=== PATIENT | female | born 1970 | race Caucasian/White ===

== ENCOUNTER 2024-11-13 14:05 | Emergency (ER) | payer MEDICARE, OTHER, SELFPAY ==
[2024-11-13] VITALS (8 sets, daily range): BP systolic 97–119; BP diastolic 42–76; BMI 35.4
[2024-11-13] MEDS: NSS 1000 IV (14:30)
[2024-11-13 14:32] LABS: % Basophils 0.8 % (0-2); % Eosinophils 10.3 % (0-6); % Lymphocytes 39.1 % (20.5-51.1); % Monocytes 5.3 % (1.7-9.3); % Neutrophils 44.5 % (42.2-75.2); Absolute Eosinophils 0.5 10^3/uL (0-0.7); Absolute Lymphocytes 1.9 10^3/uL (1.2-3.4); Absolute Monocytes 0.3 10^3/uL (0.1-0.6); Absolute Neutrophils 2.2 10^3/uL (1.4-6.5); Hematocrit 40.8 % (37.0-47.0); Hemoglobin 13.7 g/dL (12.0-16.0); Mean Corp Hgb Conc. 33.6 g/dL (33.0-37.0); Mean Corpuscular Hgb 31.9 pg (27.0-31.0); Mean Corpuscular Volume 95.1 fL (81.0-99.0); Mean Platelet Volume 10.2 fL (7.4-10.4); Nucleated Red Blood Cells % 0 %; Platelet Count 220 10^3/uL (130-400); Red Blood Cell Count 4.29 10^6/uL (4.20-5.40); White Blood Cell Count 4.9 10^3/uL (4.8-10.8)
[2024-11-13] MEDS: BENADRYL 25 MG IV (14:33)
[2024-11-13] MEDS: DILAUDID 1 MG IV ×2 (14:33→18:13)
[2024-11-13 14:42] LABS: INR 1.26; PT 16.3 Sec (11.4-14.6)
[2024-11-13 14:43] LABS: APTT 27.7 Sec (23.4-35.0)
[2024-11-13 14:46] LABS: ALT (SGPT) 13 U/L (0-35); AST (SGOT) 24 U/L (14-36); Albumin 4.7 g/dl (3.5-5.0); Alkaline Phosphatase 92 U/L (38-126); Blood Urea Nitrogen 18 mg/dl (7-17); Calcium 9.9 mg/dl (8.4-10.2); Carbon Dioxide 21 mmol/L (22-30); Chloride 112 mmol/L (98-107); Estimated Creatinine Clearance 81 ml/min; Glucose 93 mg/dl (70-99); Potassium 4.2 mmol/L (3.5-5.1); Sodium 145 mmol/L (135-145); Total Bilirubin 0.7 mg/dl (0.2-1.3); Total Protein 7.2 g/dl (6.3-8.2); eGFR 59.34
--- NOTE | 2024-11-13 14:46 | ED.GENMED ---
History of Present Illness
General
Chief Complaint: Headache
Time Seen by Provider: 11/13/24 14:17
History of Present Illness
History of Present Illness:
54-year-old female with history of migraines and DVT/PE on Xarelto presenting to the emergency department for migraine. Patient reports for the past 4 days she has been having a severe migraine at the left side of her head. She reports that she
keeps having a 'clicking' sensation in the back of her head, which then leads to weakness and tingling to the left side of her body. She called her neurologist to make an appointment. She went to the neurologist today and at the office had one of
the episodes, so the ambulance was called. Notes that she has been taking Topamax without relief of her migraines. Reports that the last time she had come to the hospital for migraine was about a year ago. Denies inciting injury or trauma.
Denies visual changes. Denies fever. Denies additional acute medical complaints
Past History
Past History
ED Past Medical History: Asthma, GERD, HTN, Other (Asthma, vocal cord dysfunction, bariatric surgery, pacemaker, removal of pacemaker, PE), Other (Prior history of DVT with IVC filter) and Other (Apparent deficiency anemia-chronic)
ED Past Surgical History: Cardiac (Pacemaker insertion and subsequent removal due to infection), Cholecystectomy and Other (Patient apparently had a pacemaker insertion in the past for perceived sick sinus syndrome which apparently was 2 to
bradycardia secondary to pulmonary embolus. The pacemaker was subsequently removed after a MRSA infection.)
Social History
Tobacco: Non-smoker
Alcohol: None
Living: with family
Family History
Family History: Diabetes and CAD
Phy Exam
Physical Exam
Physical Exam:
General: Well-appearing, no clinical signs of dehydration, nontoxic and in no acute distress
HEENT: protecting airway
Neck: appears supple
CV: Normal heart rate, regular rhythm
Resp: No accessory muscle use, no increased work of breathing, lungs clear to auscultation bilaterally
Abd: Soft and non-distended, no tenderness to palpation, normal bowel sounds
Extremities: No deformities, no swelling, no erythema, pulses and sensation intact
Neuro: alert, slight weakness to the left upper and lower extremity comparison to the right, however globally intact, no drift
: deferred
Rectal: deferred
Psych: Normal affect
Skin: Intact
Scores
NIH Stroke Score
Level of Consciousness: 0 - Alert
LOC Questions: 0-Answers both correctly
LOC Commands: 0-Performs both correctly
Best Horizontal Gaze: 0-Normal
Visual Henning: 0=Normal, no visual loss
Facial Palsy: 0=Normal, symmetrical
Motor - Right Arm: 0=No drift 10 seconds
Motor - Left Arm: 0=No drift 10 seconds
Motor - Right Le-No drift 5 seconds
Motor - Left Le-No drift 5 seconds
Limb Ataxia: 0-Absent
Sensation: 0-Normal
Best Language: 0-No aphasia
Dysarthria: 0-Normal
Extinction and Inattention: 0-No abnormality
Total Score:: 0
Course
Orders/Labs/Results
Orders:
Orders
11/13/24
Electrocardiogram (*1) Stat
Comment: DONE
11/13/24 14:17
CT Head & Neck Angio W/wo IV Urgent
Comment:
Reason For Exam: migraine with L-sided weakness
11/13/24 14:18
0.9% Sodium Chloride 1000 ml [Nss] 1,000 ml IV BOLUS
Diphenhydramine [Benadryl] 25 mg IV NOW STA
HYDROmorphone [Dilaudid] 1 mg IV NOW STA
11/13/24 14:22
CMP [Comprehensive Metabolic Panel] Urgent
Complete Blood Count/With Diff Urgent
PT/INR [Prothrombin Time] Urgent
PTT Urgent
11/13/24 15:09
Ondansetron Injectable [Zofran] 4 mg IV NOW STA
11/13/24 17:02
HYDROmorphone [Dilaudid] 1 mg IV NOW STA
Abnormal Lab Results
11/13/24
14:22
MCH 31.9 H pg
(27.0-31.0)
Eosinophils % 10.3 H %
(0-6)
PT 16.3 H Sec
(11.4-14.6)
Chloride 112 H mmol/L
(98-107)
Carbon Dioxide 21 L mmol/L
(22-30)
BUN 18 H mg/dl
(7-17)
Creatinine 1.1 H mg/dL
(0.6-1.0)
11/13/24 14:22
11/13/24 14:22
Vital Signs
Initial and Last Documented VS:
Initial Vital Signs
Pulse Resp BP Pulse Ox
50 18 119/76 100
11/13/24 14:07 11/13/24 14:07 11/13/24 14:07 11/13/24 14:07
Last Documented Vital Signs
Pulse Resp BP Pulse Ox
67 17 109/73 100
11/13/24 18:18 11/13/24 16:58 11/13/24 18:17 11/13/24 14:27
MDM/Problems Addressed
MDM/Problems Addressed:
54-year-old female with history of migraines and DVT/PE on Xarelto presenting for migraine. Vital signs on arrival are normal.
On exam, patient is resting comfortably, no acute distress or discomfort. Patient was initially seen as a stroke alert, however on arrival, does note symptoms for the past 4 days. Does have some slight decrease trying to left upper and lower
extremity, without any drifting. NIH stroke scale is a 0 and not TN K candidate secondary to duration of symptoms and anticoagulation status. Ultimately, also do not suspect stroke as etiology of symptoms. Suspect complex migraine. Patient notes
that she has had strange symptoms with her migraines in the past. When asked what medication to help her migraines while in the hospital, she notes Dilaudid or fentanyl, requesting Benadryl as well. Treat given her allergies to other medications.
Given weakness with a migraine, will also obtain CT brain imaging. Will start on IV fluids. Will reassess
19:00 -CTs are negative the patient is reporting symptom improvement, however headache is still present. Offered admission for pain control. She would prefer to go home with pain medication and steroids. Will order Decadron. Advised outpatient
follow-up with her neurologist
*Critical Care Note
Total Time (30-74mins, 75-104mins- exclusive of procedures): Not Applicable
ED Attending Note
-
Portions of this chart may have been created with voice recognition software.� Occasional wrong word or��sound alike� substitutions may have occurred due to the inherent limitations of voice recognition software.
Discharge Plan
Departure
Prescriptions:
No Action
diphenhydramine HCl [Banophen] 50 MG capsule
50 mg PO Q6H
epinephrine [EpiPen] 0.3 MG/0.3/SYRINGE auto-injector
0.3 mg IM PRN PRN (Reason: as needed)
Xopenex & Ipatropium [place]
1 unit continuous nebulization PRN PRN (Reason: as needed)
tramadol 50 MG tablet
100 mg PO BID PRN (Reason: migraine)
frovatriptan [Frova] 2.5 MG tablet
2 tab PO PRN PRN (Reason: migraine)
montelukast 10 MG tablet
20 mg PO DAILY
omeprazole magnesium [Prilosec] 10 MG susp,delayed release for recon
20 mg PO DAILY
Xarelto
20 mg PO DAILY
ondansetron HCl 4 MG tablet
4 mg PO Q6HPRN PRN (Reason: nausea)
topiramate 100 MG tablet
300 mg PO BID
dexlansoprazole [Dexilant] 30 MG capsule,biphase delayed releas
60 mg PO HS
prednisone 50 mg Tablet
50 mg PO DAILY Qty: 1 0RF
epinephrine [EpiPen 2-Stevo] 0.3 mg/0.3 mL auto-injector
0.3 mg IM ONCE Qty: 1 0RF
Referrals:
Jeremy Ervin MD [Family Provider] -
Interventions
Interventions:
*Risk Screen - Suicide Last Done: 11/13/24 14:07
*General Assessment Last Done: 11/13/24 14:07
*Neglect/Abuse Screening Last Done: 11/13/24 14:07
*ED- Fall Risk Assessment Last Done: 11/13/24 18:20
*ED COVID-19 Vaccine History Last Done: 11/13/24 18:20
ED- Neurological Assessment Last Done: 11/13/24 14:20
Discharge Date and Time
Print Language: PORTUGUESE
[2024-11-13] MEDS: ZOFRAN 4 MG IV (15:14)
[2024-11-13] MEDS: DECADRON 10 MG IV (19:31)
== END 2024-11-13 19:47 | disposition home or self-care (01) ==
LOC: EMR 14:05
PROVIDERS: EMERGENCY PHYSICIAN Student in an Organized Health Care Education/Training Program; FAMILY PHYSICIAN Internal Medicine
DX: G43.109 Migraine with aura, not intractable, without status migrainosus (principal)
CPT/HCPCS: 99285; 96374; 96375 ×3; 96361; 96376; 70496; 70498; 80053; 85025; 85610; 85730; 93005; Q9967